=== PATIENT | male | born 1975 | race Caucasian/White ===

== ENCOUNTER 2025-08-29 14:38 | Emergency (ER) | payer SELFPAY ==
[2025-08-29] VITALS (7 sets, daily range): BP systolic 125–162; BP diastolic 81–93; BMI 28.8
[2025-08-29 15:37] LABS: Urine Character Clear (Clear)
[2025-08-29 15:38] LABS: Hematocrit 41.7 % (39.0-52.0); Hemoglobin 14.2 g/dL (13.0-18.0); Mean Corp Hgb Conc. 34.1 g/dL (33.0-37.0); Mean Corpuscular Volume 91.6 fL (80.0-94.0); Nucleated Red Blood Cells % 0 % (-); Platelet Count 185 10^3/uL (130-400); Red Cell Dist. Width 12.2 % (11.5-14.5)
[2025-08-29 15:57] LABS: ALT (SGPT) 17 U/L (0-50); AST (SGOT) 21 U/L (17-59); Albumin 4.9 g/dl (3.5-5.0); Alkaline Phosphatase 75 U/L (38-126); Blood Urea Nitrogen 10 mg/dl (9-20); Calcium 9.8 mg/dl (8.4-10.2); Carbon Dioxide 26 mmol/L (22-30); Chloride 101 mmol/L (98-107); Estimated Creatinine Clearance 109 ml/min; Glucose 111 mg/dl (70-99); Potassium 3.7 mmol/L (3.5-5.1); Sodium 136 mmol/L (135-145); Total Protein 7.8 g/dl (6.3-8.2); eGFR > 60.00
--- NOTE | 2025-08-29 18:10 | ED.GENMED ---
History of Present Illness
General
Chief Complaint: Change in Mental Status
Source: patient
Time Seen by Provider: 08/29/25 18:00
History of Present Illness
History of Present Illness:
50-year-old male presents to the emergency room for evaluation of confusion. Patient states that he became confused while he was driving today. He cannot recall where he left from or where he was going. Evidently patient brought home by 911.
When he is asked what medication he takes he does know he takes risperidone but does not recall his other meds. He does not recall his past medical history at this time. He cannot tell me where he lives. Does have a history of anxiety and bipolar
disorder.
Phy Exam
Physical Exam
Physical Exam:
General: Awake, Alert, Oriented X 2, not aware of the year. Patient answers some questions but there is a pause of about 10 to 15 seconds from the question until the answer.
Vitals: unremarkable
Head: Atraumatic
Eyes: Pupils equal, EOMI
Throat: Airway intact, no exudates
Neck: Trachea midline
Lungs: Clear and equal b/l
Heart: Regular rate, no murmurs
Abd: Soft, Nontender, No pulsatile mass
Neuro: Cranial nerves intact, muscle strength equal bilaterally, cerebellar exam normal
Skin: Warm, dry, no rash
Extremities: pulses equal b/l, no edema
Course
Orders/Labs/Results
Orders:
Orders
08/29/25 15:23
Urinalysis Reflex To Culture Urgent
Date Specimen was Collected: 08/29/25
Time Specimen was Collected: 15:08
08/29/25 15:27
Complete Blood Count/With Diff Urgent
Comprehensive Metabolic Panel Urgent
08/29/25 15:46
CT Head W/o Iv Contrast Urgent
Comment:
Reason For Exam: change in mental status
08/29/25 18:13
EEG [Rapid Point of Care EEG (ED/ICU ONLY)] Q1H
Indications for use:: Altered Mental Status
Abnormal Lab Results
08/29/25
15:27
RBC 4.55 L 10^6/uL
(4.70-6.10)
MCH 31.2 H pg
(27.0-31.0)
MPV 11.6 H fL
(7.4-10.4)
Absolute Lymphs (auto) 0.7 L 10^3/uL
(1.2-3.4)
Neutrophils % 83.5 H %
(42.2-75.2)
Lymphocytes % 9.3 L %
(20.5-51.1)
Glucose 111 H mg/dl
(70-99)
08/29/25 15:27
08/29/25 15:27
Vital Signs
Initial and Last Documented VS:
Initial Vital Signs
Temp Pulse Resp BP Pulse Ox
98.6 F 80 18 162/93 100
08/29/25 15:03 08/29/25 15:03 08/29/25 15:03 08/29/25 15:03 08/29/25 15:03
Last Documented Vital Signs
Temp Pulse Resp BP Pulse Ox
98.6 F 69 20 130/81 96
08/29/25 15:43 08/29/25 21:05 08/29/25 21:05 08/29/25 21:05 08/29/25 21:05
MDM/Problems Addressed
Differential Diagnosis Includes:
Electrode abnormality, transient global amnesia, TIA, anxiety
MDM/Problems Addressed:
Patient presents with a period of confusion not recalling certain facts. We gave him a bolus of IV fluid. He now feels much better. Patient awake and alert and oriented x 3. He admits to having had similar episodes in the past. He does endorse
history of anxiety. No further intervention required at this point. Stable for discharge home and outpatient follow-up
*Radiology
Radiology exam reviewed: radiology read reviewed
*Pulse Oximetry
SaO2: 100
Oxygen Mode of Delivery: Room air
Patient hypoxic: no
*Critical Care Note
Total Time (30-74mins, 75-104mins- exclusive of procedures): Not Applicable
ED Attending Note
-
Portions of this chart may have been created with voice recognition software.� Occasional wrong word or��sound alike� substitutions may have occurred due to the inherent limitations of voice recognition software.
Discharge Plan
Departure
Patient Disposition: Home (Routine Discharge)
Date of Disposition: 08/29/25
Time of Disposition: 20:39
Patient with high blood pressure during this ER visit?: No
Condition: Good
Discharge Problem:
Anxiety attack
Instructions: Anxiety in adults - ED (DC)
Prescriptions:
No Action
No Current Medications
0
Referrals:
Lucille Kenyon CRNP [Family Provider]
Interventions
Interventions:
*Risk Screen - Suicide Last Done: 08/29/25 15:03
*General Assessment Last Done: 08/29/25 15:03
*Neglect/Abuse Screening Last Done: 08/29/25 15:03
*ED- Fall Risk Assessment Last Done: 08/29/25 15:43
*ED COVID-19 Vaccine History Last Done: 08/29/25 15:03
*ED Influenza Vaccine History Last Done: 08/29/25 15:03
*Nursing Disposition Last Done: 08/29/25 21:05
ED- Cardiac Assessment Last Done: 08/29/25 15:43
ED- Neurological Assessment Last Done: 08/29/25 15:43
ED-Psychological Assessment Last Done: 08/29/25 15:43
ED- Pulmonary Assessment Last Done: 08/29/25 15:43
ED Swallowing Screen Last Done: 08/29/25 15:43
Discharge Date and Time
Discharge Date/Time: 08/29/25 21:05
Print Language: INDONESIAN
== END 2025-08-29 21:05 | disposition home or self-care (01) ==
LOC: EMR 14:38
PROVIDERS: Emergency Medicine; EMERGENCY PHYSICIAN Emergency Medicine; FAMILY PHYSICIAN Nurse Practitioner Family
DX: F41.0 Panic disorder [episodic paroxysmal anxiety] (principal); F31.9 Bipolar disorder, unspecified
CPT/HCPCS: 99284; 70450; 80053; 81003; 85025

== ENCOUNTER 2025-09-05 07:31 | Inpatient (IN) | payer BC, SELFPAY ==
[2025-09-02 17:15] VITALS: BMI 27.8
[2025-09-02 17:16] VITALS: BP 146/102
[2025-09-02 17:30] LABS: Glucose - Point of Care 167 mg/dl (70-99)
[2025-09-02 17:43] LABS: Hematocrit 40.3 % (39.0-52.0); Hemoglobin 14.4 g/dL (13.0-18.0); Mean Corp Hgb Conc. 35.7 g/dL (33.0-37.0); Mean Corpuscular Volume 89.0 fL (80.0-94.0); Nucleated Red Blood Cells % 0 % (-); Platelet Count 206 10^3/uL (130-400); Red Cell Dist. Width 12.0 % (11.5-14.5)
--- NOTE | 2025-09-02 17:49 | ED.GENMED ---
History of Present Illness
<Kareem Hernandes PA-C - Last Filed: 09/02/25 19:46>
General
Chief Complaint: Change in Mental Status
Source: patient
Exam Limitations: none
Time Seen by Provider: 09/02/25 17:34
History of Present Illness
History of Present Illness:
50-year-old male presents via EMS from place of employment after coworkers noticed he was hyperventilating and he was having episodes of confusion. Patient was here 4 days ago for similar presentation where he presented confused. Patient has
difficulty providing significant history as he states he is confused. He denies headache or chest pain. He has a history of bipolar disorder and anxiety. He is on Risperdal.
Phy Exam
<Kareem Hernandes PA-C - Last Filed: 09/02/25 19:46>
Physical Exam
Physical Exam:
General: Well-appearing male no acute respiratory distress
HEENT: Normal cephalic atraumatic
Heart: Regular rate and rhythm
Lungs: Clear no wheeze
Neurologic exam: Alert oriented to person. He does follow commands finger-nose [id number] intact no drift on exam no facial asymmetry or slurred speech repeats himself saying that he is confused
Extremities: No cyanosis
Course
<МАРИЯ Worthington Last Filed: 09/02/25 19:46>
Orders/Labs/Results
Orders:
Orders
09/02/25 17:14
Electrocardiogram (*1) Urgent
Reason for Study: Vertigo / Dizzy
09/02/25 17:15
EKG- Treatment ONCE
09/02/25 17:31
CMP [Comprehensive Metabolic Panel] Urgent
Complete Blood Count/With Diff Urgent
09/02/25 17:47
0.9% Sodium Chloride 1000 ml [Nss] 1,000 ml IV BOLUS
09/02/25 17:53
Drug Screen, Urine [Urine Drug Abuse Screen] Urgent
Date Specimen was Collected: 09/02/25
Time Specimen was Collected: 17:50
Abnormal Lab Results
09/02/25 09/02/25
17:29 17:31
RBC 4.53 L 10^6/uL
(4.70-6.10)
MCH 31.8 H pg
(27.0-31.0)
MPV 11.5 H fL
(7.4-10.4)
Absolute Lymphs (auto) 0.6 L 10^3/uL
(1.2-3.4)
Neutrophils % 83.6 H %
(42.2-75.2)
Lymphocytes % 10.6 L %
(20.5-51.1)
Glucose 171 H mg/dl
(70-99)
POC Glucose 167 H mg/dl
(70-99)
09/02/25 17:31
09/02/25 17:31
Vital Signs
Initial and Last Documented VS:
Initial Vital Signs
Pulse Resp Pulse Ox
81 21 100
09/02/25 17:15 09/02/25 17:15 09/02/25 17:15
Last Documented Vital Signs
Temp Pulse Resp BP Pulse Ox
36.9 C 86 21 130/82 96
09/02/25 17:16 09/02/25 19:15 09/02/25 19:15 09/02/25 19:00 09/02/25 19:00
<Jer Polanco DO - Last Filed: 09/02/25 19:49>
Orders/Labs/Results
Orders:
Orders
09/02/25 17:14
Electrocardiogram (*1) Urgent
Reason for Study: Vertigo / Dizzy
09/02/25 17:15
EKG- Treatment ONCE
09/02/25 17:31
CMP [Comprehensive Metabolic Panel] Urgent
Complete Blood Count/With Diff Urgent
09/02/25 17:47
0.9% Sodium Chloride 1000 ml [Nss] 1,000 ml IV BOLUS
09/02/25 17:53
Drug Screen, Urine [Urine Drug Abuse Screen] Urgent
Date Specimen was Collected: 09/02/25
Time Specimen was Collected: 17:50
Abnormal Lab Results
09/02/25 09/02/25
17:29 17:31
RBC 4.53 L 10^6/uL
(4.70-6.10)
MCH 31.8 H pg
(27.0-31.0)
MPV 11.5 H fL
(7.4-10.4)
Absolute Lymphs (auto) 0.6 L 10^3/uL
(1.2-3.4)
Neutrophils % 83.6 H %
(42.2-75.2)
Lymphocytes % 10.6 L %
(20.5-51.1)
Glucose 171 H mg/dl
(70-99)
POC Glucose 167 H mg/dl
(70-99)
09/02/25 17:31
09/02/25 17:31
Vital Signs
Initial and Last Documented VS:
Initial Vital Signs
Pulse Resp Pulse Ox
81 21 100
09/02/25 17:15 09/02/25 17:15 09/02/25 17:15
Last Documented Vital Signs
Temp Pulse Resp BP Pulse Ox
36.9 C 86 21 130/82 96
09/02/25 17:16 09/02/25 19:15 09/02/25 19:15 09/02/25 19:00 09/02/25 19:00
Fritzlt;Kareem Hernandes PA-C - Last Filed: 09/02/25 19:46>
MDM/Problems Addressed
Differential Diagnosis Includes:
Patient with episode of confusion. He has similar presentation 4 days ago and resolved on its own. Question anxiety attack. There is no neurologic deficit. He had workup 4 days ago which demonstrated normal-appearing CT of the head. Will
recheck labs and hydrate
<Kareem Hernandes PA-C - Last Filed: 09/02/25 19:46>
*Pulse Oximetry
SaO2: 100
Oxygen Mode of Delivery: Room air
Patient hypoxic: no
*Critical Care Note
Total Time (30-74mins, 75-104mins- exclusive of procedures): Not Applicable
<Kareem Hernandes PA-C - Last Filed: 09/02/25 19:46>
Update Note
Update Note:
Labs without significant finding. Urine drug screen negative. Patient was hydrated here still confused not at his baseline spoke with his mother on the telephone who states that this is he is not himself. They are concerned about potential
environmental exposures in the apartment. Discussed with emergency room attending. Given lack of return to baseline and still with confusion will admit to hospital
ED Attending Note
<Kareem Hernandes PA-C - Last Filed: 09/02/25 19:46>
-
Portions of this chart may have been created with voice recognition software.� Occasional wrong word or��sound alike� substitutions may have occurred due to the inherent limitations of voice recognition software.
<Jer Polanco DO - Last Filed: 09/02/25 19:49>
ED Attending Note
Patient seen and examined by attending physician: Yes
I performed the substantive portion of visit, reviewed & personally made and approve the management plan that is documented in note by myself or CONCHA.: Yes
ED Attending Note:
I evaluated the patient at bedside. The patient is awake and alert but has some periods of confusion. He could not tell me what hospital he is at. He is not sure how he would get home. He is not sure why he had urinary incontinence. He had a CT
of his head the other day. Unclear etiology. I also spoke to the mother over the phone. She is concerned about the overall situation.
Discharge Plan
Departure
Patient Disposition: Admit
Date of Disposition: 09/02/25
Time of Disposition: 19:45
Presentation/result/management discussed w/ accepting MD/DO: Hospitalist
Discharge Problem:
Altered mental status
Instructions: Altered Mental Status (DC)
Prescriptions:
No Action
No Current Medications
0
Referrals:
UNKNOWN - PT DOES,NOT KNOW [Family Provider]
Interventions
Interventions:
*Risk Screen - Suicide Last Done: 09/02/25 17:28
*General Assessment Last Done: 09/02/25 17:28
*Neglect/Abuse Screening Last Done: 09/02/25 17:28
ED- Pulmonary Assessment Last Done: 09/02/25 17:30
ED- Neurological Assessment Last Done: 09/02/25 17:30
ED- Cardiac Assessment Last Done: 09/02/25 17:30
Discharge Date and Time
Print Language: MALIAN
[2025-09-02] MEDS: NSS 1000 IV (17:52)
[2025-09-02 17:59] LABS: ALT (SGPT) 17 U/L (0-50); AST (SGOT) 21 U/L (17-59); Albumin 4.6 g/dl (3.5-5.0); Alkaline Phosphatase 67 U/L (38-126); Blood Urea Nitrogen 11 mg/dl (9-20); Calcium 9.6 mg/dl (8.4-10.2); Carbon Dioxide 22 mmol/L (22-30); Chloride 103 mmol/L (98-107); Estimated Creatinine Clearance 113 ml/min; Glucose 171 mg/dl (70-99); Potassium 3.9 mmol/L (3.5-5.1); Sodium 135 mmol/L (135-145); Total Protein 7.1 g/dl (6.3-8.2); eGFR > 60.00
[2025-09-02 18:00] VITALS: BP 136/90
[2025-09-02 19:00] VITALS: BP 130/82
--- NOTE | 2025-09-02 19:49 | HPS.HSE ---
Family Physician
-
Family Physician: NOT KNOW UNKNOWN - PT DOES
Chief Complaint
-
change in mental status
History of Present Illness
Patient is a 50-year-old male with unknown past medical history who presented to [facility] ED via EMS for evaluation of change of mental status. Patient unable to provide any history at assessment. Call to brother and then parents and limited history
available through them. & Mrs. Daigle/Arlene Mehta who would like to be updated if possible. They were able to supply psychiatrist Quita Hernandez of [facility] in [place] . Mrs. Mehta believes that patient
takes sertraline daily and Invega injections, does no know for sure, dosing or frequency.
Medical History
Past Medical History
Past Medical History: Reports Psychiatric
Past Surgical History: Reports None
Social History
Unable to obtain full social history at this time due to: Other (mental status change, poor historian )
Family History
Family History: Unable to Obtain
Allergies / Home Medications
Allergies reflects when Allergies were last updated in [employer].
Home Medications with original date entered in [employer]
Allergy/Medication List:
Medications on admission are unable to be verified or confirmed at this time.
If medication reconciliation has not been performed, why?: Other (unable to complete med rec, patient with acute confusion)
Review of Systems
-
Unable to obtain full review of systems at this time due to: Other (unable to complete, patient with acute confusion)
Physical Exam
Vital Signs
Vital Signs
Temp Pulse Resp BP Pulse Ox
98.5 F 86 21 130/82 96
09/02/25 17:16 09/02/25 19:15 09/02/25 19:15 09/02/25 19:00 09/02/25 19:00
Physical Exam
General: Well Developed, Well Nourished, No Apparent Distress and Obese
HEENT: NormoCephalic, Moist mucous membranes, Nose Appears Normal and Ears Appear Normal
Respiratory: Clear and Non Labored Respirations; No Wheezes, Rales, Rhonchi or Crackles
Cardiac: S1/S2 and Regular Rhythm; No Murmur or Peripheral Edema
GI: Soft, Non Tender, Non Distended and Normal Bowel Sounds
Musculoskeletal: No Clubbing, No Cyanosis and No Edema
Skin: Warm and IV/Catheter Site
Neuro: Awake, Alert, No Motor Deficits, Nonfocal/grossly intact, Cranial Nerves Intact and Other (acute confusion, repeats 'I am confused,' with questioning ); No Slurred Speech or Facial Droop
Hematologic/Lymphatic: No Lymphadenopathy
Psych: Calm and Confused
Laboratory Results
-
09/02/25 17:31
09/02/25 17:31
Laboratory Results
Total Bilirubin 0.2 mg/dl (0.2-1.3) 09/02/25 17:31
AST 21 U/L (17-59) 09/02/25 17:31
ALT 17 U/L (0-50) 09/02/25 17:31
Alkaline Phosphatase 67 U/L (38-126) 09/02/25 17:31
Data Reviewed
-
CT Scan: Report Reviewed by me (Head: No acute intracranial abnormality noted.)
Medical Tests (Nuc Med, Echo, EKG etc): Report Reviewed by me (EKG: NORMAL SINUS RHYTHM)
Lab Data: Labs Reviewed by me
Impression/Plan
-
IMPRESSION/PLAN:
#change in mental status 2/2 TME from infectious process vs. CVA/TIA vs. impairment from ingestion of drugs or ETOH
Patient follows commands, answers all questions with 'I am confused'
Head CT (08/29/2025): No acute intracranial abnormality noted.
EKG: NORMAL SINUS RHYTHM
Drug screen: negative
- Admit to telemetry
- Consult Neurology
- Request records from Quita Hernandez of [facility] in [place]
- consider Psych Consult if no significant medical causing altered mental status
Code status: full code
DVT prophylaxis: SCDs
--- NOTE | 2025-09-02 20:42 | W.PN.UPDATE ---
Update Note
Progress Note Update
Patient seen in conjunction with nurse practitioner. I agree with the findings and physical in the assessment and plan unless stated otherwise.
Briefly, this is a 50 y.o with past medical history of psychiatric illness likely bipolar psychotic illness psoriasis) has reports indicate that he has been on Invega who presents to the emergency department with complaints of confusion. He was
seen in the emergency department about 4 days ago with similar complaints and workup was negative. At that time he had a CT of the head labs and urine that were unremarkable. He was given IV fluids and ultimately discharged. He returns again
today with complaints of confusion. He is otherwise a poor historian. He does not know all medications he takes but he states that he takes Risperdal. He denies any drug use. He denies any ingestion. He denies any exposure. He denies any
headache blurry vision nausea vomiting diarrhea. Denies any palpitations lightheadedness or dizziness. He describes the state as floating and not aware of was going on around him. He is alert and oriented x 3 at this time. He has no focal
neurological deficits.
In the emergency department he was afebrile, blood pressure was 130/80 with a pulse of 82 and was satting 96% on room air. ECG 80. CBC unremarkable. Electrolytes BUN/creatinine normal. UDS negative. Exam benign.
Assessment and plan
50-year-old with likely history of bipolar/schizophrenia with self complaint of confusion. Does have apparent confusion as unable to provide concrete details of symptoms. No etoh/drug use. Unclear if compliant with meds. No obvious neurological
deficit. No signs of infection or encephalitis. Does not appear encephalopathic. No known family hx. No gait disturbance.
- admit to med/surg observation
- neuro consult
- obtain outpatient psych and medication records
- check tsh, esr, rpr, b12
- hold off on further imaging for now
- if medical cleared or based on obtained records consider psych consult
DVT PPX - lovenox sq
Code status - Full code
[2025-09-02 21:00] VITALS: BP 128/81
[2025-09-02 22:00] VITALS: BP 132/88
[2025-09-02 22:40] VITALS: BP 141/85; BMI 27.9
--- NOTE | 2025-09-02 23:00 | PTCARENOTE ---
pt knows his name and that it is August 2025. not sure of day. pt also knows he is in the hospital but not the name. pt states that he feels off and confused. pupils 3mm and reactive. pt passed swallow eval. bed alarm on. call palacio in reach.
[2025-09-03 07:00] VITALS: BP 119/74
[2025-09-03 07:23] LABS: Hematocrit 39.1 % (39.0-52.0); Hemoglobin 13.5 g/dL (13.0-18.0); Mean Corp Hgb Conc. 34.5 g/dL (33.0-37.0); Mean Corpuscular Volume 90.7 fL (80.0-94.0); Platelet Count 196 10^3/uL (130-400); Red Cell Dist. Width 12.4 % (11.5-14.5)
[2025-09-03 07:50] LABS: Blood Urea Nitrogen 9 mg/dl (9-20); Calcium 9.0 mg/dl (8.4-10.2); Carbon Dioxide 27 mmol/L (22-30); Chloride 107 mmol/L (98-107); Estimated Creatinine Clearance 125 ml/min; Glucose 86 mg/dl (70-99); Potassium 4.3 mmol/L (3.5-5.1); Sodium 141 mmol/L (135-145); eGFR > 60.00
[2025-09-03 08:07] LABS: TSH 2.85 uIU/ml (0.47-4.68)
[2025-09-03 08:26] LABS: Vitamin B12 487 pg/ml (239-931)
[2025-09-03 08:32] LABS: Glycohemoglobin (HgbA1c) 5.3 % (4.0-5.6)
--- NOTE | 2025-09-03 09:46 | CON.NEURO4 ---
Addendum entered and electronically signed by Gaurav Koch MD 09/03/25 20:30:
I have seen and examined the patient today on 09/03/2025. I have also discussed the assessment and the management plan with nurse practitioner Lashon Ward. I generally agree with the findings, diagnosis and management plan of nurse
practitioner Lashon Ward. Given below is my assessment and plan.
This is a 50-year-old male, with a past medical history of bipolar disorder, who has presented to the hospital on 09/02/25 with report of confusion and staring spells which have happened many times in the past also as per patient. Patient reports
that yesterday (09/02/25) he was at work sitting at his desk and his coworkers reported that he seemed confused and was staring off into the space and he was not responding to them. The patient reports that he recalls this event but couldn't break
himself out of the event. Four days prior he reports having a similar episode while driving, he suddenly couldn't recall what he was doing and where he was headed.
CT head was obtained on arrival and is negative for any acute abnormalities.
The EEG was unremarkable for age.
He reports that today (09/03/25) he feels at his baseline. He denies any history of seizure but thinks he may have had an EEG in the past. He denies any history of head trauma, tongue biting, or bladder/bowel incontinence.
On Neurologic Examination, the patient is alert and oriented x 3, speech is clear, the cranial nerves II to XII are grossly intact, the motor strength is grossly 5/5 bilaterally in the upper and lower extremities, the sensations are grossly intact
bilaterally and the cerebellar examination does not show limb ataxia.
Due to the recurrence of these staring spells, the patient will benefit from a long-term EEG monitoring to rule out seizure for which he can be referred to an epileptologist. The patient is on risperidone and reported side effects of risperidone
can include disturbance in attention, lethargy and seizure. Need to get input from Psychiatry regarding decreasing the dose of risperidone or changing it to a less sedating medication.
At this time patient has returned to his baseline.
Seizure precautions need to be taken including no driving for 6 months and driving restrictions, as per [place] law, as the patient reports having had a similar staring spell, while driving, four days ago and he reports that he suddenly
couldn't recall what he was doing and where he was headed.
Recommend brain MRI with and without contrast to be done during this admission.
I had a detailed discussion with the patient regarding the assessment and the management plan, and he verbalized understanding of our discussion.
Will follow.
Original Note:
Consultation - Neurology 4
-
CONSULTING PHYSICIAN: Gaurav Koch MD
REFERRING PHYSICIAN: Hospitalists/CHIQUIS Swan
DICTATED BY: CHIQUIS Anderson
DATE/TIME OF REQUEST: 09/02/25
DATE/TIME OF CONSULTATION: 09/03/25
Reason for Consultation: Altered mental status
History of Present Illness:
This is a 50-year-old male who has presented to the hospital on 09/02/25 with report of confusion and starring spells. Patient reports that yesterday (09/02/25) he was at work sitting at his desk and his coworkers reported that he seemed confused
and was starring off/not responding to them. The patient reports that he recalls this event but couldn't break himself out of the event. Four days prior he reports having a similar episode while driving, he suddenly couldn't recall what he was
doing/where he was headed. CT head was obtained on arrival and is negative for any acute abnormalities. He reports that today (09/03/25) he feels at his baseline. He denies any headache, dizziness, vision changes, speech/swallow difficulty,
numbness, and weakness.He denies any history of seizure but thinks he may have had an EEG in the past. He denies any history of head trauma or events associated with tongue biting, or bladder/bowel incontinence.
Past Medical History: Bipolar disorder.
Surgical History: Denies.
Family History: Reviewed and noncontributory.
Social History: Denies tobacco, alcohol, and illicit drug use.
Allergies: Penicillins.
Home Medications: See below.
Review of Symptoms:
Patient denies any fever, headache, chest pain, shortness of breath, GI or symptoms.
�Per the HPI.�All systems are reviewed negative except above.
Physical Exam:
The patient is afebrile, abdomen is nondistended, breathing is unlabored, skin is warm and dry, no edema.
Neurologic Examination:
The patient is awake, alert and oriented x 3. He is able to follow commands and answer questions appropriately. There is no aphasia or dysarthria. On cranial nerve assessment, pupils are 3 mm bilateral, round and reactive to light and
accommodation. Visual avila are full. Extraocular movements are intact. Facial sensations are intact and bilaterally symmetrical, there is no facial asymmetry. Hearing is intact bilaterally to normal conversation volume. Tongue palate and uvula are
midline. Sternocleidomastoid strengths are full bilaterally. Motor strengths are 5/5 bilateral upper and lower extremities on medical research [place] scale. There is no drift or involuntary movement noted. Deep tendon reflexes are 2+ bilateral
upper and lower extremities and Babinski is absent bilaterally. Sensations of touch is intact and bilaterally symmetrical. There was no extinction noted on double simultaneous stimulation. Coordination is intact by finger to nose bilaterally.
Lab Results: See below.
Neuro Imaging:
1. CT Head 09/02/25: No acute intracranial abnormality noted.
Differentials for the patient's presentation include:
1. Starring and confusional spells; uncertain etiology. Possibilities include altered mental status due to underlying psychiatric illness, cannot entirely exclude partial seizures.
Patient has the following risk factors for their symptoms: Psychiatric medications, bipolar
Recommendations:
-Routine EEG pending.
-Evaluation of psychiatric medications by psychiatry as an outpatient.
Discussed patient care with: Dr. Koch, the patient
Vital Signs and Labs
-
Vital Signs and Labs:
Vital Signs
Temp Pulse Resp BP Pulse Ox
98.2 F 64 18 119/74 97
09/03/25 07:00 09/03/25 07:00 09/03/25 07:00 09/03/25 07:00 09/03/25 07:00
Lab Results
09/03/25 06:10
09/03/25 06:10
Sodium 141 mmol/L (135-145) 09/03/25 06:10
Potassium 4.3 mmol/L (3.5-5.1) 09/03/25 06:10
BUN 9 mg/dl (9-20) 09/03/25 06:10
Glucose 86 mg/dl (70-99) 09/03/25 06:10
Calcium 9.0 mg/dl (8.4-10.2) 09/03/25 06:10
Vitamin B12 487 pg/ml (239-931) 09/03/25 06:10
Ur Buprenorphine Negative (Negative) 09/02/25 17:53
Medications
-
Active Medications
Generic Name Dose Route Start Last Admin
Trade Name Freq PRN Reason Stop Dose Admin
Enoxaparin Sodium 40 mg 09/03/25 18:00
Enoxaparin Sodium 40 Mg/0.4 Ml Syringe SC 10/01/25 17:59
QPM SULTANA
Sodium Chloride 0 flush 09/02/25 23:00
Sodium Chloride 0.9% (Flush) Syringe IV 09/30/25 22:59
PER PROTOCOL SULTANA
Sodium Chloride 0 flush 09/03/25 11:00
Sodium Chloride 0.9% (Flush) Syringe IV 10/01/25 10:59
PER PROTOCOL SULTANA
Home Medications
�Medication �Instructions �Recorded
metformin 500 mg tablet 500 mg PO BID Diabetes 09/03/25
sertraline 100 mg tablet 100 mg PO DAILY Depression 09/03/25
[2025-09-03 10:35] LABS: Ferritin 51.0 ng/ml (17.9-464.0)
--- NOTE | 2025-09-03 11:06 | W.PN.HOSP.TC ---
Today's Communication/Plan
-
Psychiatry consult
Assessment / Plan
Assessment / Plan
Gen-AAOx3, NAD
HEENT-NC, AT, anicteric, clear oral mm
Neck-supple
CV-reg, no M, +S1/S2
Lungs-clear B/L
Abd-soft, NT, ND
Ext-no edema
Musculoskeletal-no cyanosis, clubbing
Skin-warm and dry
Neuro-grossly non-focal
Psych-calm, cooperative
Confusion -suspect due to underlying psychiatric illness. Doubt neurologic or medical etiology.
History of bipolar disorder and psychosis. He states he was hospitalized in a psychiatric hospital for about a month, discharged at the end of May.
Has been on monthly injections of Invega. Sertraline.
Consult psychiatry.
Subacute bronchitis -has had a cough for the past 1-1/2 weeks. Denies fevers chills or shortness of breath. No indication for antibiotics.
Impaired fasting glucose -on metformin. Hemoglobin A1c 5.3%. Suspect we can discontinue further metformin.
Full code
Anticipated Discharge: Within 24 hours
Subjective/Interval History
-
Date of Service: September 03, 2025
Patient seen and examined, complaining of confusion.
Objective Data
-
Labs:
Laboratory Results
09/03/25
06:10
WBC 5.0
Hgb 13.5
Hct 39.1
Plt Count 196
Sodium 141
Potassium 4.3
Chloride 107
Carbon Dioxide 27
BUN 9
Creatinine 0.7
Glucose 86
Calcium 9.0
Vital Signs:
Vital Signs
Temp Pulse Resp BP Pulse Ox
98.2 F 64 18 119/74 97
09/03/25 07:00 09/03/25 07:00 09/03/25 07:00 09/03/25 07:00 09/03/25 07:00
Review of Systems
-
History Source: Patient
All other systems: Reviewed and negative
[2025-09-03 14:13] LABS: Folate 6.3 ng/ml (2.76-20)
[2025-09-03 15:00] VITALS: BP 123/77
--- NOTE | 2025-09-03 15:40 | CON.MD ---
Addendum entered and electronically signed by Christie Robles MD 09/03/25 16:57:
spoke with out patient prescriber who called me on my cell. she notes patient has autism spectrum disorder and recently started a new job which he was very anxious about. she wonders if anxiety about his job which he expressed to nursing here plays
a role in what he was experiencing. she is going to talk to his therapist and get back to me about therapist's observations.
Addendum entered and electronically signed by Christie Robles MD 09/03/25 16:07:
the other concern could be seizures....nursing reports eeg done result not yet available. consider neuro consult. it was my impression neuro consult had been ordered but i did not see it on the chart.
Original Note:
Consultation - Medical
-
patient seen chart reviewed. discussed with cm. this consult done today september 03 2025 the patient is a 50 year old who came to a few days ago w c.o confusion. workup was unrevealing. labs and cat brain were unremarkable he was dc to home and
returned yesterday after employer noted confusion. again labs are unremarkable and there is no clear medical reason for what he describes. when you ask him what this confusion entails he says he is outside himself 'like a god but i'm not god
watching' what is going on around him. at this moment he is not in his state. he feels his sensorium has returned to normal. he became psychotic for the first time in 2005. he has had several hosp since then two in the last year. one of the admits
was for [facility] this past may and the other for an incident similar to today. he does report recent issues w sleep...falling and staying asleep. appetite is ok . no c/o hallucinations....no si no hi his current meds invega sustenna last dose aug 27
next appt in sep his presriber is janki ugalde at [facility]. hacollette also takes zoloft 100 mg daily and metformini to prevent weight gain w invega
past psych hx see above
past medical hx psoriasis patient w normal labs nl head ct bp 130/80 p 82 afeb resp nl tox negative ecg okay
fh denied for psych illness
substance abuse denied
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
mse alert ox3 no unusual behaviors speech and thought process ok mood is neutral affect ok no hi no si no c.o hallucinations feels his sensorium is back to normal aver intell insight judgment ok currently
dx bipolar disorder with psychotic fx
plan called [facility] to talk w his prescriber ms ugalde tel [phone] and left a message. at this point patient is doing better but fearful this will recur. this seems to be a breakthrough of patient's psychotic sx discussed adding risperdal
for now as invega is not on formulary. invega is the active metabolite of risperdal. would start with one mg q hs . will follow
--- NOTE | 2025-09-03 15:51 | CM ---
Patient was admitted under OBS, OBS letter signed at 1pm, patient was unable to provide insurance on admission but was able to give insurance information to immigration case manager and immigration case manager spoke with admissions and faxed over copy of insurance cards.
Patient lives alone in a 2st floor apartment, with 2 steps to enter, patient is independent with adl's and ambulation, patient reports that he was at [facility] for one month recently with similar diagnosis, patient is doing much better and is off
1:1.
Patient states he received Invega shots once a month prior to admission.
Pharmacy: [facility] in [place]
Plan; To follow with patient progress.
[2025-09-03] MEDS: LOVENOX 40 MG SC (16:34)
--- NOTE | 2025-09-03 16:38 | EEG.RPT ---
Electroencephalogram Report
Recording
Date of EE09/03/25
Type of EEG: Routine
Length of EEG recordin minutes
Done with Video Recording: Yes
Patient Status: Inpatient
Recording Conditions: Awake and Drowsy
Hyperventilation Performed: Yes
Photic Stimulation Performed: Yes
Report
LESS THAN 1 HOUR EEG REPORT
LESS THAN 1 HOUR EEG INTERPRETATION:
Unremarkable EEG for age
CLINICAL CORRELATION:
A normal EEG does not rule out a diagnosis of epilepsy. If clinical suspicion for seizure persists, a prolonged recording may be warranted.
Clinical correlation is advised.
METHODS:
A 21 channel digitized electroencephalogram (EEG) was performed using the 10/20 international system of electrode placement and one-lead of ECG recorded. Video was recorded. Persyst quantitative EEG analysis was performed.
ELECTROENCEPHALOGRAPHER IMPRESSION(S):
Quality of study
Good
Background
There was an unremarkable anterior-posterior voltage gradient of alpha frequency.
With eye opening the background activity changed to a low voltage mixture of frequencies.
There were no significant asymmetries of background activity noted.
Sleep
Drowsiness present
Hyperventilation
No driving
Photic Stimulation
No driving
ECG
Normal sinus rhythm
[2025-09-03] MEDS: RISPERDAL 1 MG PO (22:15)
[2025-09-03 23:06] VITALS: BP 115/74
[2025-09-04 07:00] VITALS: BP 115/77
--- NOTE | 2025-09-04 09:12 | PTCARENOTE ---
Pt states his confusion is 'gone' at present, MRI pending
--- NOTE | 2025-09-04 09:25 | W.PN.HOSP.TC ---
Today's Communication/Plan
-
Brain MRI
Assessment / Plan
Assessment / Plan
Gen-AAOx3, NAD
HEENT-NC, AT, anicteric, clear oral mm
Neck-supple
CV-reg, no M, +S1/S2
Lungs-clear B/L
Abd-soft, NT, ND
Ext-no edema
Musculoskeletal-no cyanosis, clubbing
Skin-warm and dry
Neuro-grossly non-focal
Psych-calm, cooperative
Confusion -patient's description of the events are quite vague and change based on the examiner. Apparently he mentioned staring off into space to neurology. Question of seizures.
Awaiting brain MRI, hopefully today.
History of bipolar disorder and psychosis. He states he was hospitalized in a psychiatric hospital for about a month, discharged at the end of May.
Has been on monthly injections of Invega. Sertraline.
Psychiatry started Risperdal in the hospital. Risk of seizures due to Risperdal noted, will defer to psychiatry.
Subacute bronchitis -has had a cough for the past 1-1/2 weeks. Denies fevers chills or shortness of breath. No indication for antibiotics.
Impaired fasting glucose -on metformin. Hemoglobin A1c 5.3%. Suspect we can discontinue further metformin.
Full code
Anticipated Discharge: Within 24 hours
Subjective/Interval History
-
Date of Service: September 04, 2025
Patient seen and examined, had an episode of lightheadedness and mild confusion after breakfast. He states it lasted for about a minute. It is very difficult for him to describe in detail but he may have been staring off into space as well.
Objective Data
-
Vital Signs:
Vital Signs
Temp Pulse Resp BP Pulse Ox
98.5 F 57 16 115/77 98
09/04/25 07:00 09/04/25 07:00 09/04/25 07:00 09/04/25 07:00 09/04/25 07:00
I&O
09/03/25 09/04/25 09/05/25
06:59 06:59 06:59
Intake Total 300 / 300
Balance 300 / 300
Review of Systems
-
History Source: Patient
All other systems: Reviewed and negative
--- NOTE | 2025-09-04 12:58 | W.PN.UPDATE ---
Update Note
Progress Note Update
patient seen chart reviewed. discussed with nursing. mr padron says at this moment he is feeling like himself although he had 'about 20 seconds' this am when he felt 'spacey'. mri is pending. eeg is normal but continuous eeg monitoring has been
recommended as out pt. i spoke to candace mccurdy from neuro. she suggests at dc patient call their office (i have him the number ) and set up followup which they can arrange for him. i also told him to call his out pt prescriber to set up an
appointment for the near future as well. will dc risperdal. given ? sz it would be preferable to be on as little antipsychotic as possible and he already has invega sustenna on board given aug 27.
--- NOTE | 2025-09-04 13:45 | CM ---
transportation dispatch manager reviewed patient's chart and met with patient and patient lives with his brother, devante was provided with a list of mental health agencies, [facility] [place] contact information, and [facility] at 10:30am.
Plan; Plan is to home with brother.
[2025-09-04 15:00] VITALS: BP 139/88
[2025-09-04] MEDS: LOVENOX 40 MG SC (16:30)
--- NOTE | 2025-09-04 16:36 | W.PN.NEURO.1 ---
Today's Communication / Plan
-
The patient says that this morning he had an episode lasting about 20 seconds in which he felt as if he was staring into space.
Brain MRI report is pending however to my review the brain MRI did not show any acute intracranial finding.
He will follow-up with psychiatry as an outpatient. Risperidone has been discontinued. He is on invega sustenna.
The EEG was unremarkable for age.
Due to the recurrence of these staring spells, the patient will benefit from a long-term EEG monitoring to rule out seizure for which he can be referred to an epileptologist. The patient is on risperidone and reported side effects of risperidone
can include disturbance in attention, lethargy and seizure. Need to get input from Psychiatry regarding decreasing the dose of risperidone or changing it to a less sedating medication.
At this time patient has returned to his baseline.
Seizure precautions need to be taken including no driving for 6 months and driving restrictions, as per [place] law, as the patient reports having had a similar staring spell, while driving, four days ago and he reports that he suddenly
couldn't recall what he was doing and where he was headed.
I had a detailed discussion with the patient regarding the assessment and the management plan, and he verbalized understanding of our discussion.
Will sign off. Please call if you have any question.
Subjective/Objective
Subjective Data
Date of Service: September 04, 2025
This is a 50-year-old male, with a past medical history of bipolar disorder, who has presented to the hospital on 09/02/25 with report of confusion and staring spells which have happened many times in the past also as per patient. Patient reports
that yesterday (09/02/25) he was at work sitting at his desk and his coworkers reported that he seemed confused and was staring off into the space and he was not responding to them. The patient reports that he recalls this event but couldn't break
himself out of the event. Four days prior he reports having a similar episode while driving, he suddenly couldn't recall what he was doing and where he was headed.
CT head was obtained on arrival and is negative for any acute abnormalities.
The patient says that this morning he had an episode lasting about 20 seconds in which he felt as if he was staring into space. Brain MRI report is pending however to my review the brain MRI did not show any acute intracranial finding.
The patient needs to have a long-term EEG done as an outpatient.
He will follow-up with psychiatry as an outpatient. Risperidone has been discontinued. He is on invega sustenna.
The EEG was unremarkable for age.
He reports that today (09/04/25) he feels at his baseline. He denies any history of seizure but thinks he may have had an EEG in the past. He denies any history of head trauma, tongue biting, or bladder/bowel incontinence.
On Neurologic Examination, the patient is alert and oriented x 3, speech is clear, the cranial nerves II to XII are grossly intact, the motor strength is grossly 5/5 bilaterally in the upper and lower extremities, the sensations are grossly intact
bilaterally and the cerebellar examination does not show limb ataxia.
Due to the recurrence of these staring spells, the patient will benefit from a long-term EEG monitoring to rule out seizure for which he can be referred to an epileptologist. The patient is on risperidone and reported side effects of risperidone
can include disturbance in attention, lethargy and seizure. Need to get input from Psychiatry regarding decreasing the dose of risperidone or changing it to a less sedating medication.
At this time patient has returned to his baseline.
Seizure precautions need to be taken including no driving for 6 months and driving restrictions, as per [place] law, as the patient reports having had a similar staring spell, while driving, four days ago and he reports that he suddenly
couldn't recall what he was doing and where he was headed.
I had a detailed discussion with the patient regarding the assessment and the management plan, and he verbalized understanding of our discussion.
Will sign off. Please call if you have any question.
Objective Data
Vital Signs
Temp Pulse Resp BP Pulse Ox
36.7 C 82 19 139/88 99
09/04/25 15:00 09/04/25 15:00 09/04/25 15:00 09/04/25 15:00 09/04/25 15:00
Lab Results
09/03/25 06:10
09/03/25 06:10
Sodium 141 mmol/L (135-145) 09/03/25 06:10
Potassium 4.3 mmol/L (3.5-5.1) 09/03/25 06:10
BUN 9 mg/dl (9-20) 09/03/25 06:10
Glucose 86 mg/dl (70-99) 09/03/25 06:10
Calcium 9.0 mg/dl (8.4-10.2) 09/03/25 06:10
Vitamin B12 487 pg/ml (239-931) 09/03/25 06:10
Ur Buprenorphine Negative (Negative) 09/02/25 17:53
Patient Allergies
Penicillins Allergy (Unknown, Verified 09/03/25 07:07)
Unknown
Vital Signs and Labs
-
Vital Signs and Labs:
Vital Signs
Temp Pulse Resp BP Pulse Ox
36.7 C 82 19 139/88 99
09/04/25 15:00 09/04/25 15:00 09/04/25 15:00 09/04/25 15:00 09/04/25 15:00
Lab Results
09/03/25 06:10
09/03/25 06:10
Sodium 141 mmol/L (135-145) 09/03/25 06:10
Potassium 4.3 mmol/L (3.5-5.1) 09/03/25 06:10
BUN 9 mg/dl (9-20) 09/03/25 06:10
Glucose 86 mg/dl (70-99) 09/03/25 06:10
Calcium 9.0 mg/dl (8.4-10.2) 09/03/25 06:10
Vitamin B12 487 pg/ml (615-061) 09/03/25 06:10
Ur Buprenorphine Negative (Negative) 09/02/25 17:53
Medications
-
Active Medications
Generic Name Dose Route Start Last Admin
Trade Name Freshanice PRN Reason Stop Dose Admin
Enoxaparin Sodium 40 mg 09/03/25 18:00 09/04/25 16:30
Enoxaparin Sodium 40 Mg/0.4 Ml Syringe SC 10/01/25 17:59 40 mg
QPM SULTANA Administration
Sodium Chloride 0 flush 09/02/25 23:00
Sodium Chloride 0.9% (Flush) Syringe IV 09/30/25 22:59
PER PROTOCOL SULTANA
Sodium Chloride 0 flush 09/03/25 11:00
Sodium Chloride 0.9% (Flush) Syringe IV 10/01/25 10:59
PER PROTOCOL SULTANA
Home Medications
�Medication �Instructions �Recorded
metformin 500 mg tablet 500 mg PO BID Diabetes 09/03/25
sertraline 100 mg tablet 100 mg PO DAILY Depression 09/03/25
[2025-09-04 23:06] VITALS: BP 120/79
[2025-09-05 07:00] VITALS: BP 111/75
--- NOTE | 2025-09-05 08:48 | W.PN.HOSP.TC ---
Addendum entered and electronically signed by Jesse Atkins DO 09/06/25 16:25:
Updated patient's brother Obed and patient's mother on the phone with detailed discharge instructions regarding his discharge diagnoses, follow-up appointments, medications on discharge, hospital course, MRI findings, etc.
We talked about the presumed diagnosis of abscence seizures as well as the potential link with the Meningioma.
We talked about how Venkata should not be driving for the next 6 months given suspected seizures.
Family will do their part to help take care of Venkata as he does live alone.
I took the time to answer all questions to their satisfaction.
Provided phone number to Dr. Fry's office for neurosurgery follow-up.
Addendum entered and electronically signed by Jesse Atkins DO 09/05/25 09:08:
Spoke with neurology service.
They recommend follow-up with Leisa frye, nurse practitioner, and the neurology office. They also recommend starting Vimpat 100 mg twice daily.
Original Note:
Today's Communication/Plan
-
Discharge
Assessment / Plan
Assessment / Plan
Gen-AAOx3, NAD
HEENT-NC, AT, anicteric, clear oral mm
Neck-supple
CV-reg, no M, +S1/S2
Lungs-clear B/L
Abd-soft, NT, ND
Ext-no edema
Musculoskeletal-no cyanosis, clubbing
Skin-warm and dry
Neuro-grossly non-focal
Psych-calm, cooperative
Confusion -patient's description of the events are quite vague and change based on the examiner. Apparently he mentioned staring off into space to neurology. Question of seizures.
Brain MRI completed. 1.7 cm extra-axial lesion along the left anterior middle cranial fossa with mild local mass effect which likely represents a meningioma.
Spoke with neurosurgery on-call, Dr. Ochoa. He recommends outpatient follow-up with Dr. Fry.
Neurology recommends no driving for 6 months. Neurology to file report to [employer].
History of bipolar disorder and psychosis. He states he was hospitalized in a psychiatric hospital for about a month, discharged at the end of May.
Has been on monthly injections of Invega. Sertraline.
Risperdal discontinued.
Subacute bronchitis -has had a cough for the past 1-1/2 weeks. Denies fevers chills or shortness of breath. No indication for antibiotics.
Impaired fasting glucose -on metformin. Hemoglobin A1c 5.3%. Suspect we can discontinue further metformin.
Full code
Dispo -stable for discharge today. Outpatient follow-up.
35 minutes spent in discharge process.
Anticipated Discharge: Today
Subjective/Interval History
-
Date of Service: September 05, 2025
Patient seen and examined, no complaints. No more episodes.
Objective Data
-
Vital Signs:
Vital Signs
Temp Pulse Resp BP Pulse Ox
97.5 F 66 12 111/75 98
09/05/25 07:00 09/05/25 07:00 09/05/25 07:00 09/05/25 07:00 09/05/25 07:00
I&O
09/04/25 09/05/25 09/06/25
06:59 06:59 06:59
Intake Total 300 / 300 240 / 240
Output Total 600 / 600
Balance 300 / 300 -360 / -360
Review of Systems
-
History Source: Patient
All other systems: Reviewed and negative
--- NOTE | 2025-09-05 08:53 | W.DS.TRANS ---
DC Summary - [employer]
-
Discharge Instructions:
Discharge Diagnosis/Procedures Confusion, staring spells, meningioma
Diet Regular
Activity As tolerated
Driving Restrictions No driving for 6 months
Bathing Restrictions None
Instructions:
Stand-Alone Forms:
Changes to Home Medications: Yes
Discharge Medications:
DC Medications w/original date entered in [employer]
sertraline 100 mg tablet 100 mg PO DAILY Depression 09/03/25
Home Medication Changes
Stop metformin
Pending Results: No
--- NOTE | 2025-09-05 09:07 | W.DS.TRANS ---
DC Summary - [employer]
-
Discharge Instructions:
Discharge Diagnosis/Procedures Confusion, staring spells, meningioma
Diet Regular
Activity As tolerated
Driving Restrictions No driving for 6 months
Bathing Restrictions None
Instructions:
Stand-Alone Forms:
Changes to Home Medications: Yes
Discharge Medications:
DC Medications w/original date entered in [employer]
sertraline 100 mg tablet 100 mg PO DAILY Depression 09/03/25
lacosamide 100 mg tablet (Vimpat) 100 mg PO BID #60 tabs 09/05/25
Home Medication Changes
Stop metformin
Pending Results: No
[2025-09-05] MEDS: VIMPAT 100 MG PO (09:09)
--- NOTE | 2025-09-05 09:18 | CM ---
Addendum entered by Meri Graff 09/05/25 10:15:
Patient made aware that he was switched to inpatient.
Original Note:
Home no needs
Plan; Home no needs.
--- NOTE | 2025-09-05 13:11 | W.PN.UPDATE ---
Update Note
Progress Note Update
patient seen chart reviewed. spoke with dr cantrell. note addition of vimpat. also small meningioma on mri. patient has been scheduled for out pt followup through neurology. have emphasized to him the importance of following up with neuro. he
understands that he cannot drive until neuro permits him to do so. he has appt for psych this afternoon in [place] at 3 pm. needs to get moving here. asked neonatal intensive care unit nurse to speak w nursing to facilitate. patient should be able to get an uber there
in time for appt. his out pt psych provider is aware of the reasons for admit etc. patient is in reasonable spirits. no overt psychosis fully oriented. he feels as his 'normal ' self at this point. he out pt therapist and prescriber and now
has neuro followup as well. he will continue w invega sustenna at this point no longer on zoloft.
--- NOTE | 2025-09-05 13:27 | W.PN.NEURO.1 ---
Addendum entered and electronically signed by Gaurav Koch MD 09/05/25 20:59:
I have seen and examined the patient on 09/05/2025. I have also discussed the patient's assessment and the management plan with nurse practitioner Leisa Hernandes, and I agree with her note given below.
My assessment and the management plan is as given below.
The MRI of the brain showed a1.7 cm extra-axial lesion along the left anterior middle cranial fossa with mild local mass effect which likely represents a meningioma.
Given the location of the meningioma it could be a source of seizure and therefore we will start the patient on Vimpat 100 mg twice a day. Will also follow-up with neurology and he will need to have a long-term EEG done and a neurosurgical
evaluation for this lesion which is likely a meningioma anterior to the left temporal lobe.
Seizure precautions are to be taken including no driving for 6 months and reported as per [place] law.
I had a detailed discussion with the patient regarding the assessment and the management plan and he verbalized understanding of our discussion.
Nurse practitioner Leisa Hernandes will arrange for long-term EEG and follow-up in the neurology clinic as soon as possible.
Original Note:
Today's Communication / Plan
-
Start Vimpat 100 mg twice a day given findings on MRI brain
Outpatient follow up with neurology, can fllow up with myself, CHIQUIS Masterson
Neuro Assessment/Plan
Assessment
This is a 50-year-old male, with a past medical history of bipolar disorder, who presented to the hospital on 09/02/25 with report of confusion and staring spells which have happened many times in the past also as per patient. Patient reports that
on 09/02/25 he was at work sitting at his desk and his coworkers reported that he seemed confused and was staring off into the space and he was not responding to them. The patient reports that he recalls this event but couldn't break himself out of
the event. Four days prior he reports having a similar episode while driving, he suddenly couldn't recall what he was doing and where he was headed.
CT head was obtained on arrival and is negative for any acute abnormalities.
MRI of the brain (09/04/2025) dose show 1.7 cm extra-axial lesion along the left anterior middle cranial fossa with mild local mass effect which likely represents a meningioma. There are minimal T2/FLAIR white matter hyperintensities which are
nonspecific although can be seen with chronic small vessel ischemic disease, migraines with aura, vasculitis amongst other etiologies.
Given location of meningioma, it could be a source of seizure and therefore will start Vimpat 100 mg twice and day.
He should follow up with Neurology and would benefit form EEG and eventual neurosurgical evaluation.
Continue to follow up with psychiatry, may need adjustments to medication regimen.
Pt should not drive, initial reporting form for [facility] has been submitted.
Plan
Given location of meningioma, it could be a source of seizure and therefore will start Vimpat 100 mg twice and day.
He should follow up with Neurology and would benefit from 24-hour EEG as an outpatient and eventual neurosurgical evaluation.
Continue to follow up with psychiatry, may need adjustments to medication regimen.
Pt should not drive, initial reporting form for [facility] has been submitted.
Subjective/Objective
Subjective Data
Date of Service: September 05, 2025
Pt seen at bedside. No new events overnight. He is concerned with testing results.
Objective Data
Vital Signs
Temp Pulse Resp BP Pulse Ox
97.5 F 66 12 111/75 98
09/05/25 07:00 09/05/25 07:00 09/05/25 07:00 09/05/25 07:00 09/05/25 07:00
Lab Results
09/03/25 06:10
09/03/25 06:10
Sodium 141 mmol/L (135-145) 09/03/25 06:10
Potassium 4.3 mmol/L (3.5-5.1) 09/03/25 06:10
BUN 9 mg/dl (9-20) 09/03/25 06:10
Glucose 86 mg/dl (70-99) 09/03/25 06:10
Calcium 9.0 mg/dl (8.4-10.2) 09/03/25 06:10
Vitamin B12 487 pg/ml (239-931) 09/03/25 06:10
Ur Buprenorphine Negative (Negative) 09/02/25 17:53
Patient Allergies
Penicillins Allergy (Unknown, Verified 09/03/25 07:07)
Unknown
Review of Systems
-
History Source: Patient
All other systems: Reviewed and negative
EENT: No Symptoms Reported
Cardiac: No Symptoms
Abdomen/GI: No Symptoms
Genitourinary: No Symptoms
Musculoskeletal: No Symptoms
Skin: No Symptoms
Neuro: See existing Neuro Note
Endocrine: No Symptoms
Hematologic / Lymphatic: No Symptoms
Physical Exam
-
General: Well Developed, Well Nourished and No Apparent Distress
Eyes: Unremarkable and No Ptosis
HEENT: Moist Mucous Membranes
Neck: Full Range of Motion
Respiratory: No Dyspnea
Skin: Unremarkable
Extremities: No Cyanosis and No Edema
Psych: Unremarkable
Extended Neurological Exam
Mood & Affect: Mood Unremarkable and Affect Unremarkable
Attention Span & Concentration: Awake, Alert, Interactive and No Difficulty with 2 Step Request
Memory: Unremarkable
Tremor: Hand Tremor Absent
Involuntary Movement: None
Speech: Quality Unremarkable, Quantity Unremarkable and Rate of Production Unremarkable
Cranial Nerve II: Left Eye: Visual Valentin Grossly Intact
Cranial Nerve II: Right Eye: Visual Valentin Grossly Intact
Cranial Nerves III, IV, : Extraocular Movement: Grossly Intact
Cranial Nerve VII: Facial Symmetry: Normal Facial Symmetry
Cranial Nerve VIII: Hearing: Unremarkable Hearing to Normal Conversational Volume
Muscle Strength, Overall: Full Throughout
Muscle Bulk & Tone: Bulk Unremarkable and Tone Unremarkable
Pronator Drift: No Drift in Upper Extremities and No Drift in Lower Extremities
Coordination: [id number] Testing Unremarkable
Data Reviewed
-
MRI Head: Report Reviewed and Image Reviewed
[2025-09-05 13:38] VITALS: BP 131/80
[2025-09-05 13:50] LABS: Syphilis/T. pallidum Ab Reflex Negative (Negative)
== END 2025-09-05 13:58 | disposition home or self-care (01) | DRG 55 ==
LOC: 4 WEST ACU 07:31
PROVIDERS: Nurse Practitioner Family; Physician Assistant; ADMITTING PHYSICIAN Internal Medicine; ATTENDING PHYSICIAN Hospitalist; CONSULT PHYSICIAN Psychiatry & Neurology Neurology; CONSULT PHYSICIAN Psychiatry & Neurology Psychiatry; EMERGENCY PHYSICIAN Emergency Medicine
DX: D32.9 Benign neoplasm of meninges, unspecified (principal); J20.9 Acute bronchitis, unspecified; F31.9 Bipolar disorder, unspecified; F20.9 Schizophrenia, unspecified; Z79.899 Other long term (current) drug therapy
CPT/HCPCS: 70553; 80048; 80053; 80306; 82607; 82728; 82746; 82962; 83036; 84443; 85025; 85027; 86780; 93005; 95816; 96360; 96361; 99284; A9575

== ENCOUNTER 2025-09-10 12:32 | Emergency (ER) | payer BC, SELFPAY ==
[2025-09-10 12:37] VITALS: BP 133/87
--- NOTE | 2025-09-10 17:26 | ED.GENMED ---
History of Present Illness
General
Chief Complaint: Anxiety
Time Seen by Provider: 09/10/25 14:00
History of Present Illness
History of Present Illness:
50-year-old male with history of autism spectrum disorder presents to the emergency department for evaluation of 'confusion'. He was brought in by EMS due to wandering around appearing to look lost. He does not recall these events. He is oriented
to date, time, and location but unable to able to tell me any details about his dates today. He was in this hospital recently due to mental status change and seen by psychiatry and felt to be stable at that time. He denies SI or HI
Review of Systems
Review of Systems
Allergies reviewed?: Yes
All Other Systems: ROS reviewed and negative except as documented in HPI and ROS
Phy Exam
Physical Exam
Physical Exam:
GEN: Well appearing, NAD, WDWN
HEENT: Oral mucosa moist, no scleral icterus
Cardiac: Regular rate
Lung: No respiratory distress, no tachypnea
MSK: No gross deformity or injuries
Skin: Good color, no pallor or jaundice, no rashes
Neuro: AO x3, moves all extremities freely
Psych: Calm, cooperative, appears to be responding to internal stimuli
Course
Orders/Labs/Results
Orders:
Orders
09/10/25 14:16
Crisis Consult Urgent
Reason for Consult: anxiety, psychosis
09/10/25 15:51
Urine Drug Abuse Screen Urgent
Date Specimen was Collected: 09/10/25
Time Specimen was Collected: 15:48
Vital Signs
Initial and Last Documented VS:
Initial Vital Signs
Temp Pulse Resp BP Pulse Ox
97.6 F 82 16 133/87 96
09/10/25 12:37 09/10/25 12:37 09/10/25 12:37 09/10/25 12:37 09/10/25 12:37
Last Documented Vital Signs
Temp Pulse Resp BP Pulse Ox
97.6 F 82 16 133/87 96
09/10/25 12:37 09/10/25 12:37 09/10/25 15:22 09/10/25 12:37 09/10/25 17:26
MDM/Problems Addressed
MDM/Problems Addressed:
Patient appears to be psychotic at this time, he is oriented and able to make decisions less he will sign himself in for inpatient treatment
*Pulse Oximetry
SaO2: 96
Oxygen Mode of Delivery: Room air
Patient hypoxic: no
*Critical Care Note
Total Time (30-74mins, 75-104mins- exclusive of procedures): Not Applicable
ED Attending Note
-
Portions of this chart may have been created with voice recognition software.� Occasional wrong word or��sound alike� substitutions may have occurred due to the inherent limitations of voice recognition software.
Discharge Plan
Departure
Patient Disposition: Psych Facility
Date of Disposition: 09/10/25
Time of Disposition: 17:26
Discharge Problem:
Psychosis
Prescriptions:
No Action
sertraline 100 mg Tablet
100 mg PO DAILY
lacosamide [Vimpat] 100 mg tablet
100 mg PO BID Qty: 60 0RF
Referrals:
Lucille Kenyon CRNP [Family Provider]
Interventions
Interventions:
*Risk Screen - Suicide Last Done: 09/10/25 12:37
*General Assessment Last Done: 09/10/25 12:37
*Neglect/Abuse Screening Last Done: 09/10/25 15:22
*ED- Fall Risk Assessment Last Done: 09/10/25 14:46
*ED COVID-19 Vaccine History Last Done: 09/10/25 14:46
*ED Influenza Vaccine History Last Done: 09/10/25 14:46
*Nursing Disposition Last Done: 09/10/25 19:22
ED-Psychological Assessment Last Done: 09/10/25 15:22
Discharge Date and Time
Discharge Date/Time: 09/10/25 19:23
Print Language: WELSH
== END 2025-09-10 19:23 ==
LOC: EMR 12:32
PROVIDERS: Physician Assistant; EMERGENCY PHYSICIAN Emergency Medicine; FAMILY PHYSICIAN Nurse Practitioner Family
DX: F29 Unspecified psychosis not due to a substance or known physiological condition (principal); F84.0 Autistic disorder
CPT/HCPCS: 99285; 80306